=== PATIENT | female | born 1985 | race Caucasian/White ===

== ENCOUNTER 2019-04-26 11:04 | Emergency (ER) | payer BC, OTHER ==
[~2019-04-26] VITALS: Ht 172.7 cm; Wt 141.0 kg
[2019-04-26 11:12] VITALS: BP 145/102
[2019-04-26 12:16] LABS: URINE HCG NEGATIVE (NEG)
[2019-04-26 12:21] LABS: BASOPHILS # (AUTO) 0.1 X10'3 (0-0.2); BASOPHILS % (AUTO) 0.6 % (0-1); EOSINOPHILS % (AUTO) 0.3 % (0-6); HEMATOCRIT 46.2 % (35.0-45.0); HEMOGLOBIN 15.7 g/dl (12.0-16.0); LYMPHOCYTES # (AUTO) 2.2 X10'3 (1.1-4.8); LYMPHOCYTES % (AUTO) 23.4 % (21-51); MEAN CORPUSCULAR HEMOGLOBIN 31.1 PG (27.0-31.0); MEAN CORPUSCULAR HGB CONC 33.9 g/dL (33.0-36.5); MEAN CORPUSCULAR VOLUME 91.8 FL (78-98); MEAN PLATELET VOLUME 8.6 FL (7.4-10.4); MONOCYTES # (AUTO) 0.4 X10'3 (0-0.9); MONOCYTES % (AUTO) 4.5 % (2-12); NEUTROPHILS # (AUTO) 6.8 X10'3 (1.8-7.7); NEUTROPHILS % (AUTO) 71.2 % (42-75); PLATELET COUNT 338 X10'3 (140-440); RED BLOOD COUNT 5.03 X10'6 (4.20-5.60); RED CELL DISTRIBUTION WIDTH 14.8 % (11.5-14.5); WHITE BLOOD COUNT 9.5 X10'3 (4.5-11.0)
[2019-04-26 12:24] LABS: ALANINE AMINOTRANSFERASE 40 U/L (12-78); ALBUMIN 4.1 G/DL (3.4-5.0); ALBUMIN/GLOBULIN RATIO 1.1 (1.1-1.5); ALKALINE PHOSPHATASE 73 IU/L (46-116); ANION GAP 14 (8-16); ASPARTATE AMINO TRANSFERASE 17 U/L (10-37); BILIRUBIN,TOTAL 0.7 MG/DL (0.1-1.0); BLOOD UREA NITROGEN 11 MG/DL (7-18); BUN/CREATININE RATIO 10.1 (6.6-38.0); CALCIUM 9.4 MG/DL (8.5-10.1); CHLORIDE 105 MMOL/L (99-107); CREATININE 1.09 MG/DL (0.40-0.90); GLUCOSE 107 MG/DL (70-104); LIPASE 146 U/L (73-393); POTASSIUM 3.9 MMOL/L (3.5-5.1); SODIUM 140 MMOL/L (135-145); TOTAL CARBON DIOXIDE 20.8 MMOL/L (24-32); eGFR 57 ML/MIN
[2019-04-26 12:34] LABS: CLARITY,URINE SLIGHTLY CLOUDY (Clear); COLOR,URINE YELLOW (Yellow); GLUCOSE, URINE NEGATIVE (Neg); KETONES,URINE TRACE mg/dl (Neg); LEUKOCYTE ESTERASE ,URINE NEGATIVE (Neg); NITRITES, URINE NEGATIVE (Neg); OCCULT BLOOD,URINE LARGE (Neg); PROTEIN,URINE NEGATIVE (Neg); UROBILINOGEN,URINE 0.2 E.U/dL (0.2-1.0)
[2019-04-26 12:40] LABS: UA COLLECTION TYPE CLN CATCH MIDSTREAM
[2019-04-26 12:41] LABS: SQUAMOUS EPITHELIAL CELL,UR MODERATE /LPF (FEW)
[2019-04-26 12:42] LABS: BACTERIA,URINE FEW /HPF (Neg)
[2019-04-26 12:43] LABS: RBC,URINE 0-2 /HPF (0-2); WBC,URINE 0-4 /HPF (0-4)
[2019-04-26] MEDS ORDERED: DOXY100C2 PO (12:45)
[2019-04-26] MEDS ORDERED: CefTRIAXone 1000mg IM Kit (w/lidocaine diluent) IM ONE (12:45)
[2019-04-26] MEDS ORDERED: METR500T PO (12:45)
--- NOTE | 2019-04-26 12:55 | NUR ---
pt states that she has taken rocephen previously with no reaction
== END 2019-04-26 13:13 | disposition home or self-care (01) ==
LOC: ER 11:04
DX: R10.2 Pelvic and perineal pain (principal); R10.31 Right lower quadrant pain; N98.9 Complication associated with artificial fertilization, unspecified; F10.99 Alcohol use, unspecified with unspecified alcohol-induced disorder; Z88.1 Allergy status to other antibiotic agents; Z88.0 Allergy status to penicillin; Z79.899 Other long term (current) drug therapy; Y90.9 Presence of alcohol in blood, level not specified
CPT/HCPCS: 36415; 80053; 81001; 81025; 83690; 85025; 87491; 87591; 96372; 99283; J0696

== ENCOUNTER 2021-07-05 04:21 | Emergency (ER) | payer BC, OTHER ==
[~2021-07-05] VITALS: Ht 172.7 cm; Wt 147.7 kg
--- NOTE | 2021-07-05 07:15 | NUR ---
Introduced self to pt. Pt awaiting MD. Has not had any of her morning meds. Pain 10/10
[2021-07-05] MEDS ORDERED: LORazepam 1 MG tablet PO ONE (08:00)
[2021-07-05] MEDS ORDERED: acetaminophen 325mg tablet PO ONE (08:00)
[2021-07-05] MEDS ORDERED: morphine 4 MG/ML inj SYRINge IM ONE (08:00)
[2021-07-05] MEDS ORDERED: aspirin 325mg tablet PO ONE (08:00)
[2021-07-05] MEDS ORDERED: orphenadrine citrate 60mg/2ml inj. IM ONE (08:00)
[2021-07-05] MEDS ORDERED: LIDOcaine 5% patch TP ONE (08:00)
[2021-07-05] MEDS ORDERED: ondansetron 4mg rapidly disintigrating tab PO ONE (08:00)
[2021-07-05 08:47] LABS: CLARITY,URINE CLOUDY (Clear); COLOR,URINE YELLOW (Yellow); GLUCOSE, URINE NEGATIVE (Neg); KETONES,URINE NEGATIVE (Neg); LEUKOCYTE ESTERASE ,URINE NEGATIVE (Neg); NITRITES, URINE NEGATIVE (Neg); OCCULT BLOOD,URINE NEGATIVE (Neg); PH,URINE 6.5 (4.8-8.0); PROTEIN,URINE NEGATIVE (Neg); UROBILINOGEN,URINE 0.2 E.U/dL (0.2-1.0)
[2021-07-05 08:53] LABS: UA COLLECTION TYPE CLN CATCH MIDSTREAM
[2021-07-05 08:54] LABS: SQUAMOUS EPITHELIAL CELL,UR MODERATE /LPF (FEW)
[2021-07-05 08:55] LABS: BACTERIA,URINE 2+ /HPF (Neg); RBC,URINE 0-2 /HPF (0-2); WBC,URINE 0-4 /HPF (0-4)
[2021-07-05] MEDS ORDERED: BACL-11 PO (09:18)
[2021-07-05] MEDS ORDERED: HYDR-3965 PO ×2 (09:18→10:02)
[2021-07-05] MEDS ORDERED: LIDO700A32 TOP (09:18)
[2021-07-05] MEDS ORDERED: ACET-1025 PO (09:18)
[2021-07-05 09:29] VITALS: BP 129/97
== END 2021-07-05 09:31 | disposition home or self-care (01) ==
LOC: ER 04:22
DX: M54.50 Low back pain, unspecified (principal); Z72.89 Other problems related to lifestyle; Z88.0 Allergy status to penicillin; Z88.1 Allergy status to other antibiotic agents
CPT/HCPCS: 81001; 96372; 99285; J2270; J2360

== ENCOUNTER 2022-07-27 00:07 | Emergency (ER) | payer BC, OTHER ==
[~2022-07-27] VITALS: Ht 172.7 cm; Wt 128.8 kg
[~2022-07-27 00:07] MED LIST: BACL-11 PO; LIDO700A32 TOP
[2022-07-27 00:10] VITALS: BP 200/118
[2022-07-27] MEDS ORDERED: oxyCODONE IR 5mg (immed. release) tablet PO ONE (00:35)
[2022-07-27] MEDS ORDERED: ondansetron 4mg rapidly disintigrating tab PO ONE (00:35)
[2022-07-27] MEDS ORDERED: ketorolac tromethamine 15mg/ml inj. IM ONE (00:35)
[2022-07-27 01:35] LABS: CLARITY,URINE SLIGHTLY CLOUDY (Clear); COLOR,URINE YELLOW (Yellow); GLUCOSE, URINE NEGATIVE (Neg); KETONES,URINE NEGATIVE (Neg); LEUKOCYTE ESTERASE ,URINE NEGATIVE (Neg); NITRITES, URINE NEGATIVE (Neg); OCCULT BLOOD,URINE TRACE-INTACT (Neg); PROTEIN,URINE NEGATIVE (Neg); UROBILINOGEN,URINE 0.2 E.U/dL (0.2-1.0)
[2022-07-27 01:37] LABS: UA COLLECTION TYPE CLN CATCH MIDSTREAM
[2022-07-27 01:47] LABS: BACTERIA,URINE 2+ /HPF (Neg); MUCUS STRANDS FEW /LPF (Neg); RBC,URINE 0-2 /HPF (0-2); SQUAMOUS EPITHELIAL CELL,UR MODERATE /LPF (FEW); WBC,URINE 0-4 /HPF (0-4)
[2022-07-27] MEDS ORDERED: CEPH-585 PO (02:05)
== END 2022-07-27 02:19 | disposition home or self-care (01) ==
LOC: ER 00:08
DX: M54.50 Low back pain, unspecified (principal); R82.81 Pyuria; R31.9 Hematuria, unspecified; Z87.442 Personal history of urinary calculi; Z98.890 Other specified postprocedural states; Z72.89 Other problems related to lifestyle; Z88.1 Allergy status to other antibiotic agents; Z88.0 Allergy status to penicillin; Z79.899 Other long term (current) drug therapy
CPT/HCPCS: 74176; 81001; 96372; 99285; J1885